=== PATIENT | male | born 1965 | race Caucasian/White ===

== ENCOUNTER 2022-05-24 14:09 | Emergency (ER) | payer BC ==
[2022-05-24] MEDS ORDERED: Sucralfate Suspension 1 GM/10 ML Cup PO ONE (17:30)
[2022-05-24] MEDS ORDERED: Famotidine 20 MG/2 ML SDV IVPUSH ONE (17:30)
[2022-05-24] MEDS ORDERED: Ondansetron 4 MG/2 ML SDV IVPUSH ONE (17:30)
[2022-05-24] MEDS ORDERED: Pantoprazole 40 MG Vial IVPUSH ONE (17:30)
[2022-05-24] MEDS ORDERED: Lactated Ringers 1,000 ML IV SCH (17:45)
[2022-05-24 18:41] LABS: CORONAVIRUS COVID-19 NAA NEGATIVE (NEGATIVE)
[2022-05-24 20:21] VITALS: BP 137/90; PULSE 92
== END 2022-05-24 20:21 | disposition home or self-care (01) ==
LOC: JD.ED 14:09
DX: K92.2 Gastrointestinal hemorrhage, unspecified (principal); K21.9 Gastro-esophageal reflux disease without esophagitis; Z79.899 Other long term (current) drug therapy; Z20.822 Contact with and (suspected) exposure to COVID-19
CPT/HCPCS: 0241U; 36415; 80053; 83690; 85025; 85610; 85730; 86850; 86900; 86901; 96361; 96374; 96375; 99284; A9270; C9113; J2405; J3490; J7120